=== PATIENT | female | born 1970 | race Caucasian/White ===

== ENCOUNTER → 2017-06-24 | Day surgery (SDC) | payer OTHER ==
[~2017-06-24] MED LIST: ALDA100T PO; BACL20TA PO; DICL-86 PO; GLUCTAB PO; ISOMCAP PO; LACTATED RINGER'S 1000 ML INJ 1,000 ML ONE; NUCYNTA PO; ONDANSETRON HCL 4 MG/2 ML VIAL IV PUSH ONE; PROPOFOL 200 MG/20 ML AMP IV ONE
--- NOTE | 2017-06-24 15:28 | GIPROC ---
[facility] [address] [facility], [address] EGD PROCEDURE REPORT EXAM DATE: 06/24/2017 PATIENT NAME: Radha Hall MR #: [id number] BIRTHDATE: 1970 ATTENDING: Boo Morales MD ORDER #: [id number] HOSE FINISHER: none STATUS: outpatient INDICATIONS: The patient is a 47 yr old female here for an EGD due to heartburn PROCEDURE PERFORMED: EGD w/ biopsy MEDICATIONS: None and Per Anesthesia. TOPICAL ANESTHETIC: none CONSENT: The patient understands the risks and benefits of the procedure and understands that these risks include, but are not limited to: sedation, allergic reaction, infection, perforation and/or bleeding. Alternative means of evaluation and treatment include, among others: physical exam, x-rays, and/or surgical intervention. The patient elects to proceed with this endoscopic procedure. medical equipment was checked for proper function. Hand hygiene and appropriate measures for infection prevention was taken. After the risks, benefits and alternatives of the procedure were thoroughly explained, Informed consent was verified, confirmed and timeout was successfully executed by the treatment team. The patient was anesthetized with anesthesia and the EC-2990i ([id number]) endoscope was introduced through the mouth and advanced to the second portion of the duodenum. Biospy of antrum for h. pylor done. Retroflexed views revealed no abnormalities The gastroscope was then slowly withdrawn and removed. STOMACH: There was mild gastritis in the gastric antrum. ADVERSE EVENTS: There were no complications. IMPRESSIONS: 1. There was mild gastritis in the gastric antrum 2. Retroflexed views revealed no abnormalities 3. mild bile reflux RECOMMENDATIONS: Continue PPI PATIENT CONDITION: fair DISPOSITION: Home REPEAT EXAM: NONE Boo Morales MD eSigned: Boo Morales MD 06/24/2017 3:27 PM cc: Dami Sifuentes M.D.
== END | disposition home or self-care (01) ==
LOC: ESDC 14:10
PROVIDERS: ATTEND Surgery
DX: R12 Heartburn (principal); K29.70 Gastritis, unspecified, without bleeding
CPT/HCPCS: 00740; 43239; 88305; 88312; J2405; J3010; J7120

== ENCOUNTER 2017-10-15 05:07 | Inpatient (IN) | payer OTHER ==
[~2017-10-15] VITALS: Ht 149.9 cm; Wt 86.6 kg
[~2017-10-15 05:07] MED LIST changes: -ALDA100T PO; -BACL20TA PO; -DICL-86 PO; +ESCI20TA PO; -GLUCTAB PO; -ISOMCAP PO; -LACTATED RINGER'S 1000 ML INJ 1,000 ML ONE; +LAMO100T PO; -NUCYNTA PO; -ONDANSETRON HCL 4 MG/2 ML VIAL IV PUSH ONE; -PROPOFOL 200 MG/20 ML AMP IV ONE
[2017-10-15] MEDS ORDERED: SODIUM CHLORID 0.9% 500 ML IV PRN (05:30)
[2017-10-15] MEDS ORDERED: SCOPOLAMINE 1.5 MG PATCH T-DERMAL SCH (05:30)
[2017-10-15] MEDS ORDERED: LACTATED RINGER'S 1000 ML IV PRN (05:30)
[2017-10-15] MEDS ORDERED: VANCOMYCIN 1,000 MG/NS 250ML (for <70 kg) IV SCH ×2 (05:30)
[2017-10-15] MEDS ORDERED: metroNIDAZOLE 500 MG INJ 100 ML IV SCH (05:30)
[2017-10-15] MEDS ORDERED: CHLORHEXIDINE GLUCONATE 2 % 1 PACK (2 CLOTHS) TOPICAL PRN (05:30)
[2017-10-15] MEDS ORDERED: METOPROLOL TARTRATE 25 MG TAB PO PRN (05:30)
[2017-10-15] MEDS ORDERED: APREPITANT 40 MG CAP PO SCH (05:30)
[2017-10-15] MEDS ORDERED: ONDANSETRON HCL 4 MG/2 ML VIAL IV PUSH SCH (05:30)
[2017-10-15] MEDS ORDERED: ACETAMINOPHEN 1000 MG/100 ML 100 ML IV SCH (05:30)
[2017-10-15] MEDS ORDERED: POVIDONE IODINE 5% (ANTISEPSIS KIT) 4 APPLICATIONS EACH NARE PRN (05:30)
[2017-10-15] MEDS ORDERED: BUPIVACAINE/EPINEPHRINE 0.25% PF 30 ML VIAL ONE (06:48)
[2017-10-15] MEDS ORDERED: ARTIFICIAL TEARS OPTH OINT 3.5 APPLIC/3.5 GM TUBO ONE (07:17)
[2017-10-15] MEDS ORDERED: SUGAMMADEX SODIUM 200 MG/2 ML VIAL IV PUSH ONE ×2 (07:17)
[2017-10-15] MEDS ORDERED: ACETAMINOPHEN 1000 MG/100 ML 0 ML IV ONE (07:17)
[2017-10-15] MEDS ORDERED: METHYLENE BLUE 100 MG/10 ML VIAL OTHER ONE (08:15)
[2017-10-15] MEDS ORDERED: ONDANSETRON HCL 4 MG/2 ML VIAL IV PUSH PRN (08:45)
[2017-10-15] MEDS ORDERED: SODIUM CHLORIDE 0.9% FLUSH 10 ML FLUSH IV FLUSH PRN (08:45)
[2017-10-15] MEDS ORDERED: ACETAMINOPHEN 325MG/HYDROcodone 7.5MG/15ML UDC PO PRN ×2 (08:45)
[2017-10-15] MEDS ORDERED: ENALAPRILAT 1.25 MG/ML VIAL IV PUSH PRN (08:45)
[2017-10-15] MEDS ORDERED: Post-op Orders (for Pharmacy) OTHER ONE (08:45)
--- NOTE | 2017-10-15 08:45 | HHI.PR ---
Immediate Post Op Note Procedure Date: Oct 15, 2017 Pre Op Diagnosis: bmi 40 morbid obesity, hypercholestermia, htn Post Op Diagnosis: same Surgeon: Boo Morales MD Fire Fighting Equipment Specialist(s): Cecilia Procedure: lap sleeve gastrectomy Findings: no leak with methylene blue Complications: none Specimen(s) removed: none Estimated blood loss: 5cc Anesthesia: General Drains: None Patient to: PACU Patient Condition: Good Boo Morales MD Oct 15, 2017 08:45
[2017-10-15] MEDS ORDERED: DO NOT ADM ANY ANTICOAGULANT DRUGS PRN (08:55)
[2017-10-15] MEDS: SODIUM CHLORIDE 0.9% FLUSH 10 ML FLUSH IV FLUSH SCH ×2 (09:00→20:51)
[2017-10-15] MEDS: D5-1/2 NS + KCL 20 MEQ INJ 1,000 ML IV SCH ×2 (09:05→16:12)
[2017-10-15] MEDS ORDERED: *morphine SULFATE 8 MG/ML PERIprocedure ONLY ONE ×2 (09:12→09:37)
[2017-10-15] MEDS ORDERED: diphenhydrAMINE HCL 50 MG/ML VIAL IV PUSH PRN (12:00)
[2017-10-15] MEDS ORDERED: diphenhydrAMINE HCL ELIXIR 12.5 MG/5 ML CUP PO PRN (12:00)
[2017-10-15] MEDS ORDERED: MORPHINE SULFATE 30 MG/30 ML PCA IV SCH (12:15)
[2017-10-15] MEDS ORDERED: NALOXONE HCL 0.4 MG/ML AMP IV PUSH PRN (12:15)
[2017-10-15 12:32] VITALS: BP 133/76; PULSE 82; RESP 18; TEMP 98.2; O2SAT 96
[2017-10-15] MEDS: ACETAMINOPHEN 1000 MG/100 ML 100 ML IV SCH ×3 (13:03→23:58)
[2017-10-15] MEDS: METOCLOPRAMIDE HCL 10 MG/2 ML VIAL IV PUSH SCH ×3 (13:04→23:57)
[2017-10-15] MEDS: PANTOPRAZOLE SOD 40 MG DELAYED RELEASE TAB PO SCH (13:05)
[2017-10-15] MEDS: ENOXAPARIN SODIUM 40 MG/0.4 ML SYRINGE SQ SCH (13:05)
[2017-10-15] MEDS ORDERED: METOCLOPRAMIDE HCL 10 MG/2 ML VIAL IM SCH (14:00)
[2017-10-15] MEDS: PCA - TOTAL MG MORPHINE DELIVERED PER SHIFT SCH ×2 (14:00→20:50)
[2017-10-15 16:00] VITALS: BP 129/67; PULSE 80; RESP 16; TEMP 97.7; O2SAT 92
[2017-10-15] MEDS: metroNIDAZOLE 500 MG INJ 100 ML IV SCH ×2 (16:12→20:47)
[2017-10-15 19:25] VITALS: O2SAT 92
[2017-10-15 20:28] VITALS: BP 118/75; PULSE 72; RESP 20; TEMP 97.9; O2SAT 98
[2017-10-15] MEDS: VANCOMYCIN INJ 1,000 MG in SODIUM CHLOR 0.9% 250 ML INJ 250 ML IV SCH (20:46)
[2017-10-16] VITALS (8 sets, daily range): BP systolic 125–157; BP diastolic 59–75; PULSE 56–80; RESP 17–20; TEMP 97.5–99.1; O2SAT 95–98
[2017-10-16] MEDS: D5-1/2 NS + KCL 20 MEQ INJ 1,000 ML IV SCH ×3 (03:18→20:50)
[2017-10-16] MEDS: ACETAMINOPHEN 1000 MG/100 ML 100 ML IV SCH (05:11)
[2017-10-16] MEDS: PCA - TOTAL MG MORPHINE DELIVERED PER SHIFT SCH (05:13)
[2017-10-16] MEDS: METOCLOPRAMIDE HCL 10 MG/2 ML VIAL IV PUSH SCH ×3 (05:15→20:51)
[2017-10-16] MEDS: metroNIDAZOLE 500 MG INJ 100 ML IV SCH (05:16)
[2017-10-16 08:11] LABS: AUTOMATED NEUTROPHIL # 8.3 TH/MM3 (1.8-7.7); BASOPHIL % 0.2 % (0.0-2.0); HEMATOCRIT 35.6 % (35.0-46.0); HEMO FLAGS DIFF FINAL; LYMPH % 10.4 % (9.0-44.0); LYMPHOCYTE # 1.1 TH/MM3 (1.0-4.8); MEAN CORPUSCULAR HEMOGLOBIN 28.4 PG (27.0-34.0); MEAN CORPUSCULAR HGB CONC 33.1 % (32.0-36.0); MONO % 7.7 % (0.0-8.0); NEUT % 81.7 % (16.0-70.0); PLATELET COUNT 281 TH/MM3 (150-450); RED BLOOD COUNT 4.15 MIL/MM3 (4.00-5.30); RED CELL DISTRIBUTION WIDTH 13.2 % (11.6-17.2); WHITE BLOOD COUNT 10.2 TH/MM3 (4.0-11.0)
--- NOTE | 2017-10-16 08:40 | MP ---
cc: SANAM MORALES MD DATE OF SURGERY 10/15/2017 PREOPERATIVE DIAGNOSIS 1. Morbid obesity BMI of 40 2. Hyperlipidemia 3. Hypertension POSTOPERATIVE DIAGNOSIS 1. Morbid obesity BMI of 40 2. Hyperlipidemia 3. Hypertension PROCEDURE PERFORMED Laparoscopic sleeve gastrectomy over a 36-Z[place]an bougie. SURGEON Dr. Sanam Morales SMALL STOCK FACER Cecilia ANESTHESIA GETA IV FLUIDS See anesthesia sheet ESTIMATED BLOOD LOSS 10 cc DRAINS None COMPLICATIONS None WOUND CLASSIFICATION Clean, contaminated FINDINGS No leak with methylene blue. INDICATION The patient is a 47-year-old female who presented with multiple attempts at weight loss and morbid obesity. She has multiple comorbidities including BMI of 40 and hyperlipidemia, hypertension. Therefore discussion was for sleeve gastrectomy. PROCEDURE OF THE DETAIL The patient was taken to the operating room suite, placed in the supine position. She was prepped and draped in the usual sterile fashion after induction of general endotracheal anesthesia. A brief time-out done stating correct patient, procedure, and surgical site were all in agreement with this. Attention was first directed 15 cm distal to the xyphoid in the midline. Local anesthetic injected and a small incision made with an 11-blade. A 5-mm Visiport was placed under direct visualization and pneumoperitoneum obtained. Several other trocars were placed including a right upper quadrant 5-mm liver retractor trocar followed by a 15 mm right lower quadrant trocar and two 5 mm left lateral and left lower trocars. Local anesthetic injected at all trocars sites and all trocars introduced under direct visualization. The patient placed in reversed Trendelenburg position and airplaned to the right. A Vicky-flex retractor was placed to retract the left lower lobe of the liver and the greater curvature was taken down with a harmonic scalpel 5 cm from the pylorus all the way up to the angle of His. Ligamentous attachments were all taken down from the posterior portion of the stomach as well. A 36-Zimbabwean ViSiGi bougie port was placed by anesthesia and placed on suction. The stomach was then transected using an Endo-FRANCHESCA stapler initial black load, followed by green loads and gold loads. The matthieu were all reinforced with Seamguard. Bovill started 4 cm from the pylorus all the way up to the angle of His. A distance 2 cm to the left of the angle incisura. Methylene blue was then instilled without evidence of leaking, 60 cc syringe x2. The gastrocolic ligament was then sutured to the Seamguard using a 2-0 Stratafix suture. Hemostasis was obtained. Evicel was placed at the suture line. The liver retractor was removed. The stomach was removed through the 15-mm port site. The port was closed with 0 Vicryl suture passer closure device. Pneumoperitoneum was removed. Ports were removed under direct vision. A 4-0 Monocryl was used to close the subcuticular sutures. Sterile dressings placed including Mastisol and Steri-Strips. All lap and instrument counts were correct. The patient tolerated the procedure well with no intraoperative complication. MD SERGE Guzman/BERNARDO /6:44 PM /8:19 AM
[2017-10-16 08:46] LABS: BICARBONATE 27.7 MEQ/L (21.0-32.0); MAGNESIUM 1.9 MG/DL (1.5-2.5); POTASSIUM 4.5 MEQ/L (3.5-5.1)
[2017-10-16] MEDS: SODIUM CHLORIDE 0.9% FLUSH 10 ML FLUSH IV FLUSH SCH ×2 (09:00→20:50)
[2017-10-16] MEDS: PANTOPRAZOLE SOD 40 MG DELAYED RELEASE TAB PO SCH (09:08)
[2017-10-16] MEDS: VANCOMYCIN INJ 1,000 MG in SODIUM CHLOR 0.9% 250 ML INJ 250 ML IV SCH (09:09)
[2017-10-16] MEDS ORDERED: ACETAMINOPHEN/CODEINE ELIX 120 MG/12 MG/5 ML CUP PO PRN (11:30)
[2017-10-16] MEDS ORDERED: METOCLOPRAMIDE HCL 10 MG/2 ML VIAL IV PUSH PRN (12:00)
--- NOTE | 2017-10-16 12:19 | HHI.PR ---
Subjective Subjective Notes Having some issues with nausea Not at PO fluid goal yet Objective Vitals/I&O Vital Signs Date Time Temp Pulse Resp B/P (MAP) Pulse Ox O2 Delivery O2 Flow Rate FiO2 10/16/17 12:00 97.7 56 17 157/75 (102) 97 10/15/17 19:25 21 10/15/17 12:00 Nasal Cannula 2 Labs Laboratory Tests Test 10/16/17 07:46 White Blood Count 10.2 Red Blood Count 4.15 Hemoglobin 11.8 Hematocrit 35.6 Mean Corpuscular Volume 86.0 Mean Corpuscular Hemoglobin 28.4 Mean Corpuscular Hemoglobin Concent 33.1 Red Cell Distribution Width 13.2 Platelet Count 281 Mean Platelet Volume 7.8 Neutrophils (%) (Auto) 81.7 Lymphocytes (%) (Auto) 10.4 Monocytes (%) (Auto) 7.7 Eosinophils (%) (Auto) 0.0 Basophils (%) (Auto) 0.2 Neutrophils # (Auto) 8.3 Lymphocytes # (Auto) 1.1 Monocytes # (Auto) 0.8 Eosinophils # (Auto) 0.0 Basophils # (Auto) 0.0 CBC Comment DIFF FINAL Differential Comment Blood Urea Nitrogen 4 Creatinine 0.75 Random Glucose 139 Calcium Level 8.1 Magnesium Level 1.9 Sodium Level 138 Potassium Level 4.5 Chloride Level 106 Carbon Dioxide Level 27.7 Anion Gap 4 Estimat Glomerular Filtration Rate 83 Cardiovascular: Regular Abdomen: Post-op tenderness Extremities: Perfused Wound Wound : Wound Location: Abdomen Appearance: Clean & Dry A/P Assessment and Plan 47yo F POD#1 laparoscopic VSG -Change metoclopramide to scheduled -Transition to oral pain control -Continue to increase PO fluids as tolerated -Continue with frequent ambulation Discharge Planning D/C home probably tomorrow Angelica Chaudhary Oct 16, 2017 12:19
[2017-10-16] MEDS: ENOXAPARIN SODIUM 40 MG/0.4 ML SYRINGE SQ SCH (13:08)
[2017-10-16] MEDS: lamoTRIgine 100 MG TAB PO SCH (13:08)
[2017-10-16] MEDS ORDERED: PROMETHAZINE HCL SYRUP 6.25 MG/5 ML CUP PO PRN (16:15)
[2017-10-16] MEDS ORDERED: DEXAMETHASONE SOD PHOS 20 MG/5 ML VIAL IV PUSH ONE (17:00)
[2017-10-16] MEDS ORDERED: ESCITALOPRAM OXALATE 20 MG TAB PO SCH (21:00)
[2017-10-17 00:33] VITALS: BP 129/67; PULSE 71; RESP 20; TEMP 98.8; O2SAT 97
[2017-10-17] MEDS: D5-1/2 NS + KCL 20 MEQ INJ 1,000 ML IV SCH ×2 (03:23→12:45)
[2017-10-17] MEDS: METOCLOPRAMIDE HCL 10 MG/2 ML VIAL IV PUSH SCH ×2 (03:23→09:28)
[2017-10-17 08:00] VITALS: BP 143/64; PULSE 50; RESP 17; TEMP 97; O2SAT 97
[2017-10-17] MEDS: SODIUM CHLORIDE 0.9% FLUSH 10 ML FLUSH IV FLUSH SCH (09:00)
[2017-10-17] MEDS: lamoTRIgine 100 MG TAB PO SCH (09:28)
[2017-10-17] MEDS: PANTOPRAZOLE SOD 40 MG DELAYED RELEASE TAB PO SCH (09:28)
[2017-10-17 12:00] VITALS: BP 116/69; PULSE 68; RESP 17; TEMP 98; O2SAT 94
--- NOTE | 2017-10-17 12:31 | HHI.PR ---
Subjective Subjective Notes Nausea much improved BP back to baseline Objective Vitals/I&O Vital Signs Date Time Temp Pulse Resp B/P (MAP) Pulse Ox O2 Delivery O2 Flow Rate FiO2 10/17/17 12:00 98.0 68 17 116/69 (85) 94 10/16/17 19:33 21 10/15/17 12:00 Nasal Cannula 2 Cardiovascular: Regular Lungs: Clear Abdomen: Post-op tenderness Extremities: Perfused Wound Wound : Wound Location: Abdomen Appearance: Clean & Dry A/P Assessment and Plan 47yo F POD#1 laparoscopic VSG -Continue to increase PO fluids as tolerated -Continue with frequent ambulation Discharge Planning D/C home today Angelica Chaudhary Oct 17, 2017 12:31
[2017-10-17] MEDS: ENOXAPARIN SODIUM 40 MG/0.4 ML SYRINGE SQ SCH (12:46)
[2017-10-17] MEDS ORDERED: SCOP1PAT2 T-DERMAL (13:24)
[2017-10-17 16:00] VITALS: BP 143/67; PULSE 48; RESP 17; TEMP 97.4; O2SAT 97
== END 2017-10-17 16:18 | disposition home or self-care (01) | DRG 621 ==
LOC: HSDI 05:07 → N07B 12:21
PROVIDERS: ADMIT Surgery; ATTEND Surgery
PROC: 0DB64Z3 Excision of Stomach, Percutaneous Endoscopic Approach, Vertical (ICD-10-PCS; principal; 2017-10-15 07:30)
DX: E66.01 Morbid (severe) obesity due to excess calories (principal); I10 Essential (primary) hypertension; E78.5 Hyperlipidemia, unspecified; Z68.41 Body mass index [BMI] 40.0-44.9, adult; E55.9 Vitamin D deficiency, unspecified; F32.9 Major depressive disorder, single episode, unspecified
CPT/HCPCS: 80048; 83735; 85025; 94150; J0131; J1100; J1650; J2270; J2405; J2765; J3370; J3480; J7050; J7120; J8501